=== PATIENT | female | born 1940 | race Caucasian/White ===

== ENCOUNTER 2017-05-10 13:57 | Inpatient (IN) | payer OTHER ==
[2017-05-10] MEDS: HYDROCODONE/APAP (5/325) TAB PO ×2 (03:00→23:36)
[2017-05-10 17:03] LABS: ADD MAN DIFF? NO
[2017-05-10] MEDS: VANCOMYCIN 1 GM (PMX) 250 ML IVPB (17:12)
[2017-05-10 17:13] LABS: BASOPHILS % 0.1 % (0.0-2.0); EOSINOPHILS % 0.2 % (0.0-7.0); HEMATOCRIT 25.1 % (37.0-47.0); HEMOGLOBIN 8.2 g/dl (12.0-16.0); LYMPHOCYTES # 2.1 10^3/ul (0.8-2.9); LYMPHOCYTES % 9.4 % (15.0-51.0); MEAN CORPUSCULAR HEMOGLOBIN 26.5 pg (29.0-33.0); MEAN CORPUSCULAR HGB CONC 32.7 g/dl (32.0-37.0); MEAN CORPUSCULAR VOLUME 81.2 fl (82.0-101.0); MEAN PLATELET VOLUME 8.7 fl (7.4-10.4); MONOCYTE # 1.1 10^3/ul (0.3-0.9); MONOCYTES % 4.9 % (0.0-11.0); NEUTROPHIL # 18.5 10^3/ul (1.6-7.5); NEUTROPHILS % 84.2 % (39.0-77.0); RED BLOOD COUNT 3.09 10^6/ul (4.20-5.40); RED CELL DISTRIBUTION WIDTH 16.2 % (11.5-14.5)
[2017-05-10] MEDS: SODIUM CHLORIDE 0.9% 1L BAG IV* (17:13)
[2017-05-10 17:17] LABS: PLATELET COUNT 736 10^3/UL (140-415)
[2017-05-10 17:22] LABS: INR 1.04; PROTIME 13.7 Sec (11.9-14.9); PT RATIO 1.1
[2017-05-10 17:23] LABS: PARTIAL THROMBOPLASTIN TIME 40.9 Sec (25.0-35.0)
[2017-05-10 17:24] LABS: LACTIC ACID 1.6 mmol/L (0.5-2.0)
[2017-05-10 17:41] LABS: TROPONIN-I < 0.012 ng/ml (0.00-0.12)
[2017-05-10] MEDS: morphine 4 MG/ML VIAL IV (20:02)
[2017-05-10] MEDS ORDERED: ONDANSETRON 4 MG INJ IV (20:30)
[2017-05-10] MEDS: PIPER-TAZO 3.375 GM IV (PMX) 50 ML IV (21:01)
[2017-05-10] MEDS: SOD CHLORIDE 0.9% 1,000 ML IV (21:26)
[2017-05-10] MEDS ORDERED: MAGNESIUM HYDROXIDE 30ML CUP PO (21:30)
[2017-05-10] MEDS ORDERED: BISACODYL (EC) 5 MG TAB PO (21:30)
[2017-05-10] MEDS ORDERED: ACETAMINOPHEN 325 MG TAB PO (21:30)
[2017-05-10] MEDS ORDERED: DOCUSATE SODIUM 100 MG CAP PO (21:30)
[2017-05-10] MEDS ORDERED: NACL 0.9% 3 ML SYG IV (21:30)
[2017-05-10] MEDS ORDERED: ACETAMINOPHEN 500 MG TAB PO (21:30)
[2017-05-10] MEDS ORDERED: DEXTROSE 50% 50 ML SYRINGE IV (22:30)
[2017-05-10] MEDS ORDERED: GLUCOSE GEL 15 GRAM TUBE PO ×2 (22:30)
[2017-05-10] MEDS ORDERED: GLUCAGON 1 MG INJ IM (22:30)
[2017-05-10] MEDS: MAGNESIUM HYDROXIDE 30ML CUP PO (23:38)
[2017-05-10] MEDS: ACETAMINOPHEN 325 MG TAB PO (23:47)
[2017-05-11] MEDS ORDERED: PIPER-TAZO 3.375 GM IV (PMX) 50 ML IV
[2017-05-11] MEDS: PIPER-TAZO 3.375 GM IV (PMX) 50 ML IV ×5 (02:42→23:40)
[2017-05-11] MEDS: ACETAMINOPHEN 325 MG TAB PO (04:32)
[2017-05-11] MEDS: PANTOPRAZOLE 40 MG INJ IV (05:19)
[2017-05-11 06:59] LABS: ANION GAP 15 (8-16); BLOOD UREA NITROGEN 12 mg/dl (7-20); CALCIUM 7.1 mg/dl (8.4-10.2); CARBON DIOXIDE 29 mmol/L (21-31); CHLORIDE 95 mmol/L (97-110); CREATININE 0.51 mg/dl (0.44-1.00); GLUCOSE 143 mg/dl (70-220); POTASSIUM 3.5 mmol/L (3.5-5.1); SODIUM 135 mmol/L (135-144)
[2017-05-11] MEDS: BISACODYL 10 MG SUPP PR (09:00)
[2017-05-11] MEDS: MAGNESIUM HYDROXIDE 30ML CUP PO ×2 (10:07→16:20)
[2017-05-11] MEDS: ASPIRIN 81 MG TAB PO (10:30)
[2017-05-11] MEDS: ENOXAPARIN 40 MG/0.4 ML SYG SC (10:30)
[2017-05-11] MEDS: HYDROCODONE/APAP (5/325) TAB PO ×3 (10:54→21:40)
[2017-05-11] MEDS: LINAGLIPTIN 5 MG TABLET PO (13:43)
[2017-05-11] MEDS: LOSARTAN 50 MG TAB PO (13:43)
[2017-05-11] MEDS: ZINC SULFATE 220 MG CAP PO (13:45)
[2017-05-11] MEDS: ASCORBIC ACID 500 MG TAB PO (13:45)
[2017-05-11] MEDS ORDERED: VANCOMYCIN IV PER PHARMACY XX (14:00)
[2017-05-11] MEDS: VANCOMYCIN 1 GM 250 ML IVPB (16:54)
[2017-05-11] MEDS: SOD CHLORIDE 0.9% 1,000 ML IV ×2 (19:04→21:37)
[2017-05-11] MEDS ORDERED: DOCUSATE SODIUM 10 MG/ML (10ML CUP) (20:35)
[2017-05-11] MEDS ORDERED: DOCUSATE SODIUM 100 MG CAP PO (21:00)
[2017-05-11] MEDS: DOCUSATE SODIUM 10 MG/ML (10ML CUP) PO (21:38)
[2017-05-11] MEDS: ATORVASTATIN 20 MG TAB PO (21:38)
[2017-05-11] MEDS: INSULIN ASPART [NOVOLOG] 3 ML PEN SC (21:43)
[2017-05-12] MEDS: ACETAMINOPHEN 500 MG TAB PO (00:11)
[2017-05-12] MEDS: ACCU-CHEK XX (02:00)
[2017-05-12] MEDS: HYDROCODONE/APAP (5/325) TAB PO ×5 (03:30→20:38)
[2017-05-12] MEDS: hydrALAzine 20 MG INJ IV (03:42)
[2017-05-12] MEDS: VANCOMYCIN 1 GM 250 ML IVPB ×2 (03:46→17:24)
[2017-05-12 05:42] LABS: ADD MAN DIFF? NO
[2017-05-12 05:50] LABS: BASOPHILS % 0.1 % (0.0-2.0); EOSINOPHILS % 0.2 % (0.0-7.0); HEMOGLOBIN 7.4 g/dl (12.0-16.0); LYMPHOCYTES # 2.1 10^3/ul (0.8-2.9); LYMPHOCYTES % 9.9 % (15.0-51.0); MEAN CORPUSCULAR HEMOGLOBIN 25.6 pg (29.0-33.0); MEAN CORPUSCULAR HGB CONC 30.8 g/dl (32.0-37.0); MEAN PLATELET VOLUME 8.5 fl (7.4-10.4); MONOCYTE # 0.8 10^3/ul (0.3-0.9); NEUTROPHILS % 84.9 % (39.0-77.0); RED BLOOD COUNT 2.89 10^6/ul (4.20-5.40); RED CELL DISTRIBUTION WIDTH 16.2 % (11.5-14.5)
[2017-05-12 05:50] LABS: WHITE BLOOD COUNT 21.2 10^3/ul (4.8-10.8)
[2017-05-12] MEDS: PANTOPRAZOLE 40 MG INJ IV (05:50)
[2017-05-12] MEDS: PIPER-TAZO 3.375 GM IV (PMX) 50 ML IV ×3 (05:54→17:24)
[2017-05-12 06:14] LABS: PHOSPHORUS 2.9 mg/dl (2.5-4.9)
[2017-05-12 06:14] LABS: ANION GAP 17 (8-16); BLOOD UREA NITROGEN 9 mg/dl (7-20); CALCIUM 7.3 mg/dl (8.4-10.2); CARBON DIOXIDE 27 mmol/L (21-31); CHLORIDE 95 mmol/L (97-110); CREATININE 0.45 mg/dl (0.44-1.00); GLUCOSE 114 mg/dl (70-220); POTASSIUM 3.7 mmol/L (3.5-5.1); SODIUM 135 mmol/L (135-144)
[2017-05-12 06:19] LABS: MAGNESIUM 0.8 mg/dl (1.7-2.5)
[2017-05-12 06:25] LABS: PLATELET COUNT 728 10^3/UL (140-415)
[2017-05-12 07:23] LABS: ADD UMIC NO; UR ASCORBIC ACID NEGATIVE (NEGATIVE); UR BILIRUBIN (Dip) NEGATIVE (NEGATIVE); UR BLOOD (Dip) NEGATIVE (NEGATIVE); UR CLARITY CLEAR (CLEAR); UR COLOR YELLOW (YELLOW); UR GLUCOSE (Dip) 1+ mg/dL (NEGATIVE); UR KETONES (Dip) TRACE mg/dL (NEGATIVE); UR LEUKOCYTE ESTERASE (Dip) NEGATIVE Leu/ul (NEGATIVE); UR NITRITE (Dip) NEGATIVE (NEGATIVE); UR RBC 1 /HPF (0-5); UR SPECIFIC GRAVITY (Dip) 1.012 (1.003-1.030); UR TOTAL PROTEIN (Dip) NEGATIVE (NEGATIVE); UR UROBILINOGEN (Dip) NEGATIVE (NEGATIVE); UR WBC 1 /HPF (0-5)
[2017-05-12 07:24] LABS: HEMOGLOBIN A1C 7.4 % (0-5.9)
[2017-05-12] MEDS: MAGNESIUM SULFATE 4 GM/100 ML 100 ML IVPB (07:53)
[2017-05-12] MEDS: ENOXAPARIN 40 MG/0.4 ML SYG SC (07:55)
[2017-05-12] MEDS: INSULIN ASPART [NOVOLOG] 3 ML PEN SC ×4 (07:56→20:44)
[2017-05-12] MEDS: BISACODYL 10 MG SUPP PR (08:06)
[2017-05-12] MEDS: MAGNESIUM HYDROXIDE 30ML CUP PO (08:06)
[2017-05-12] MEDS: ASCORBIC ACID 500 MG TAB PO (08:06)
[2017-05-12] MEDS: LINAGLIPTIN 5 MG TABLET PO (08:06)
[2017-05-12] MEDS: ZINC SULFATE 220 MG CAP PO (08:06)
[2017-05-12] MEDS: LOSARTAN 50 MG TAB PO (08:07)
[2017-05-12] MEDS: ASPIRIN 81 MG TAB PO (08:07)
[2017-05-12 08:25] LABS: IMMEDIATE SPIN CROSSMATCH 1 1
[2017-05-12] MEDS: DOCUSATE SODIUM 10 MG/ML (10ML CUP) PO (20:36)
[2017-05-12] MEDS: ATORVASTATIN 20 MG TAB PO (20:39)
[2017-05-13] MEDS: PIPER-TAZO 3.375 GM IV (PMX) 50 ML IV ×4 (00:22→17:53)
[2017-05-13] MEDS: SOD CHLORIDE 0.9% 1,000 ML IV ×2 (00:23→20:50)
[2017-05-13] MEDS: ACCU-CHEK XX (01:44)
[2017-05-13] MEDS: HYDROCODONE/APAP (5/325) TAB PO ×4 (03:30→20:48)
[2017-05-13 03:59] LABS: ADD MAN DIFF? NO
[2017-05-13 04:11] LABS: BASOPHILS % 0.2 % (0.0-2.0); EOSINOPHILS # 0.1 10^3/ul (0.0-0.5); EOSINOPHILS % 0.3 % (0.0-7.0); HEMATOCRIT 23.4 % (37.0-47.0); HEMOGLOBIN 7.4 g/dl (12.0-16.0); LYMPHOCYTES # 1.5 10^3/ul (0.8-2.9); LYMPHOCYTES % 7.7 % (15.0-51.0); MEAN CORPUSCULAR HEMOGLOBIN 25.9 pg (29.0-33.0); MEAN CORPUSCULAR HGB CONC 31.6 g/dl (32.0-37.0); MEAN CORPUSCULAR VOLUME 81.8 fl (82.0-101.0); MEAN PLATELET VOLUME 8.3 fl (7.4-10.4); MONOCYTE # 0.7 10^3/ul (0.3-0.9); MONOCYTES % 3.5 % (0.0-11.0); NEUTROPHIL # 16.7 10^3/ul (1.6-7.5); NEUTROPHILS % 87.6 % (39.0-77.0); PLATELET COUNT 663 10^3/UL (140-415); RED BLOOD COUNT 2.86 10^6/ul (4.20-5.40); RED CELL DISTRIBUTION WIDTH 16.2 % (11.5-14.5)
[2017-05-13 04:41] LABS: VANCOMYCIN,TROUGH 13.8 ug/ml (10.0-20.0)
[2017-05-13 04:41] LABS: ANION GAP 12 (8-16); BLOOD UREA NITROGEN 5 mg/dl (7-20); CALCIUM 7.1 mg/dl (8.4-10.2); CARBON DIOXIDE 27 mmol/L (21-31); CHLORIDE 96 mmol/L (97-110); CREATININE 0.44 mg/dl (0.44-1.00); GLUCOSE 151 mg/dl (70-220); SODIUM 132 mmol/L (135-144)
[2017-05-13] MEDS: VANCOMYCIN 1 GM 250 ML IVPB ×2 (05:29→15:30)
[2017-05-13] MEDS: PANTOPRAZOLE 40 MG INJ IV (05:30)
[2017-05-13] MEDS: INSULIN ASPART [NOVOLOG] 3 ML PEN SC ×4 (08:26→20:46)
[2017-05-13] MEDS: ENOXAPARIN 40 MG/0.4 ML SYG SC (08:27)
[2017-05-13] MEDS: LINAGLIPTIN 5 MG TABLET PO (08:29)
[2017-05-13] MEDS: ZINC SULFATE 220 MG CAP PO (08:29)
[2017-05-13] MEDS: LOSARTAN 50 MG TAB PO ×2 (08:29→20:49)
[2017-05-13] MEDS: MAGNESIUM HYDROXIDE 30ML CUP PO (08:29)
[2017-05-13] MEDS: ASPIRIN 81 MG TAB PO (08:29)
[2017-05-13] MEDS: ASCORBIC ACID 500 MG TAB PO (08:29)
[2017-05-13] MEDS: BISACODYL 10 MG SUPP PR (08:30)
[2017-05-13] MEDS: POTASSIUM CHLORIDE 20 MEQ POWDER FOR ORAL SOLN PO (11:56)
[2017-05-13] MEDS: metFORMIN 500 MG TAB GTB (17:53)
[2017-05-13 18:47] LABS: TROPONIN-I < 0.012 ng/ml (0.00-0.12)
[2017-05-13] MEDS: DOCUSATE SODIUM 10 MG/ML (10ML CUP) PO (20:47)
[2017-05-13] MEDS: ATORVASTATIN 20 MG TAB PO (20:47)
[2017-05-14] MEDS: PIPER-TAZO 3.375 GM IV (PMX) 50 ML IV ×4 (00:34→17:24)
[2017-05-14] MEDS: ACCU-CHEK XX (00:35)
[2017-05-14 01:44] LABS: TROPONIN-I < 0.012 ng/ml (0.00-0.12)
[2017-05-14] MEDS: hydrALAzine 20 MG INJ IV ×2 (02:18→10:56)
[2017-05-14] MEDS: HYDROCODONE/APAP (5/325) TAB PO ×6 (03:30→21:20)
[2017-05-14] MEDS: VANCOMYCIN 1 GM 250 ML IVPB ×2 (03:38→15:12)
[2017-05-14] MEDS: PANTOPRAZOLE 40 MG INJ IV (05:39)
[2017-05-14 07:37] LABS: CHOL/HDL RATIO 3.4 RATIO; HDL CHOLESTEROL 20 mg/dl (33-92); LDL CHOLESTEROL,CALCULATED 29 mg/dl; TRIGLYCERIDES 100 mg/dl (0-149)
[2017-05-14 07:37] LABS: CHOLESTEROL 69 mg/dl (100-200)
[2017-05-14] MEDS: LOSARTAN 50 MG TAB PO ×2 (08:29→21:21)
[2017-05-14] MEDS: LINAGLIPTIN 5 MG TABLET PO (08:29)
[2017-05-14] MEDS: ASPIRIN 81 MG TAB PO (08:29)
[2017-05-14] MEDS: ASCORBIC ACID 500 MG TAB PO (08:29)
[2017-05-14] MEDS: metFORMIN 500 MG TAB GTB ×2 (08:29→17:25)
[2017-05-14] MEDS: BISACODYL 10 MG SUPP PR (08:30)
[2017-05-14] MEDS: ZINC SULFATE 220 MG CAP PO (08:30)
[2017-05-14] MEDS: INSULIN ASPART [NOVOLOG] 3 ML PEN SC ×5 (08:31→21:00)
[2017-05-14] MEDS: MAGNESIUM HYDROXIDE 30ML CUP PO (08:32)
[2017-05-14] MEDS: ENOXAPARIN 40 MG/0.4 ML SYG SC (08:32)
[2017-05-14] MEDS: SOD CHLORIDE 0.9% 1,000 ML IV ×2 (08:37→23:06)
[2017-05-14] MEDS: FOSFOMYCIN 3 GM PACKET PO (13:49)
[2017-05-14] MEDS: DOCUSATE SODIUM 10 MG/ML (10ML CUP) PO (21:20)
[2017-05-14] MEDS: ATORVASTATIN 20 MG TAB PO (21:21)
[2017-05-15] MEDS: PIPER-TAZO 3.375 GM IV (PMX) 50 ML IV ×4 (00:13→17:20)
[2017-05-15] MEDS: ACCU-CHEK XX (02:00)
[2017-05-15] MEDS: hydrALAzine 20 MG INJ IV (03:23)
[2017-05-15] MEDS: VANCOMYCIN 1 GM 250 ML IVPB (03:30)
[2017-05-15] MEDS: HYDROCODONE/APAP (5/325) TAB PO ×4 (03:30→21:20)
[2017-05-15] MEDS: PANTOPRAZOLE 40 MG INJ IV (05:58)
[2017-05-15 06:56] LABS: BLOOD UREA NITROGEN 6 mg/dl (7-20)
[2017-05-15 08:00] LABS: ADD MAN DIFF? NO
[2017-05-15] MEDS: INSULIN ASPART [NOVOLOG] 3 ML PEN SC ×4 (08:00→21:18)
[2017-05-15 08:07] LABS: WHITE BLOOD COUNT 15.4 10^3/ul (4.8-10.8)
[2017-05-15 08:07] LABS: BASOPHILS % 0.3 % (0.0-2.0); EOSINOPHILS # 0.1 10^3/ul (0.0-0.5); EOSINOPHILS % 0.4 % (0.0-7.0); HEMATOCRIT 25.4 % (37.0-47.0); HEMOGLOBIN 7.7 g/dl (12.0-16.0); LYMPHOCYTES # 1.3 10^3/ul (0.8-2.9); LYMPHOCYTES % 8.1 % (15.0-51.0); MEAN CORPUSCULAR HEMOGLOBIN 25.4 pg (29.0-33.0); MEAN CORPUSCULAR HGB CONC 30.3 g/dl (32.0-37.0); MEAN CORPUSCULAR VOLUME 83.8 fl (82.0-101.0); MEAN PLATELET VOLUME 8.1 fl (7.4-10.4); MONOCYTE # 0.7 10^3/ul (0.3-0.9); MONOCYTES % 4.4 % (0.0-11.0); NEUTROPHIL # 13.2 10^3/ul (1.6-7.5); NEUTROPHILS % 85.9 % (39.0-77.0); RED BLOOD COUNT 3.03 10^6/ul (4.20-5.40); RED CELL DISTRIBUTION WIDTH 16.3 % (11.5-14.5)
[2017-05-15 08:31] LABS: ANION GAP 12 (8-16); BLOOD UREA NITROGEN 6 mg/dl (7-20); CALCIUM 7.6 mg/dl (8.4-10.2); CARBON DIOXIDE 25 mmol/L (21-31); CHLORIDE 100 mmol/L (97-110); CREATININE 0.57 mg/dl (0.44-1.00); GLUCOSE 124 mg/dl (70-220); POTASSIUM 3.1 mmol/L (3.5-5.1); SODIUM 134 mmol/L (135-144)
[2017-05-15] MEDS: ASPIRIN 81 MG TAB PO (08:40)
[2017-05-15] MEDS: ASCORBIC ACID 500 MG TAB PO (08:40)
[2017-05-15] MEDS: MAGNESIUM HYDROXIDE 30ML CUP PO (08:40)
[2017-05-15] MEDS: ZINC SULFATE 220 MG CAP PO (08:40)
[2017-05-15] MEDS: BISACODYL 10 MG SUPP PR (08:40)
[2017-05-15] MEDS: LINAGLIPTIN 5 MG TABLET PO (08:40)
[2017-05-15 08:41] LABS: PLATELET COUNT 725 10^3/UL (140-415)
[2017-05-15] MEDS: LOSARTAN 50 MG TAB PO ×2 (08:41→21:17)
[2017-05-15] MEDS: ENOXAPARIN 40 MG/0.4 ML SYG SC (08:49)
[2017-05-15] MEDS: POTASSIUM CHLORIDE 50 ML IVPB ×3 (13:09→15:27)
[2017-05-15 16:04] LABS: VANCOMYCIN,TROUGH 18.8 ug/ml (10.0-20.0)
[2017-05-15] MEDS: SOD CHLORIDE 0.9% 1,000 ML IV (17:32)
[2017-05-15] MEDS: VANCOMYCIN 750 MG in DEXTROSE 5% 150 ML IVPB (18:11)
[2017-05-15] MEDS: ATORVASTATIN 20 MG TAB PO (21:17)
[2017-05-15] MEDS: DOCUSATE SODIUM 10 MG/ML (10ML CUP) PO (21:17)
[2017-05-16] MEDS: PIPER-TAZO 3.375 GM IV (PMX) 50 ML IV ×4 (00:18→17:36)
[2017-05-16] MEDS: ACCU-CHEK XX (02:00)
[2017-05-16] MEDS: HYDROCODONE/APAP (5/325) TAB PO ×4 (04:32→21:50)
[2017-05-16] MEDS: SOD CHLORIDE 0.9% 1,000 ML IV (04:33)
[2017-05-16] MEDS: PANTOPRAZOLE 40 MG INJ IV (05:42)
[2017-05-16] MEDS: VANCOMYCIN 750 MG in DEXTROSE 5% 150 ML IVPB ×2 (06:17→21:53)
[2017-05-16 06:50] LABS: ADD MAN DIFF? NO
[2017-05-16 06:56] LABS: WHITE BLOOD COUNT 13.2 10^3/ul (4.8-10.8)
[2017-05-16 06:56] LABS: BASOPHILS % 0.2 % (0.0-2.0); EOSINOPHILS # 0.1 10^3/ul (0.0-0.5); EOSINOPHILS % 0.7 % (0.0-7.0); HEMATOCRIT 23.6 % (37.0-47.0); HEMOGLOBIN 7.3 g/dl (12.0-16.0); LYMPHOCYTES # 1.2 10^3/ul (0.8-2.9); LYMPHOCYTES % 9.1 % (15.0-51.0); MEAN CORPUSCULAR HEMOGLOBIN 26.1 pg (29.0-33.0); MEAN CORPUSCULAR HGB CONC 30.9 g/dl (32.0-37.0); MEAN CORPUSCULAR VOLUME 84.3 fl (82.0-101.0); MEAN PLATELET VOLUME 8.2 fl (7.4-10.4); MONOCYTE # 0.7 10^3/ul (0.3-0.9); MONOCYTES % 5.3 % (0.0-11.0); NEUTROPHIL # 11.1 10^3/ul (1.6-7.5); NEUTROPHILS % 83.8 % (39.0-77.0); PLATELET COUNT 681 10^3/UL (140-415); RED CELL DISTRIBUTION WIDTH 16.4 % (11.5-14.5)
[2017-05-16 07:21] LABS: ANION GAP 9 (8-16); BLOOD UREA NITROGEN 7 mg/dl (7-20); CARBON DIOXIDE 27 mmol/L (21-31); CHLORIDE 99 mmol/L (97-110); CREATININE 0.62 mg/dl (0.44-1.00); GLUCOSE 128 mg/dl (70-220); POTASSIUM 3.4 mmol/L (3.5-5.1); SODIUM 132 mmol/L (135-144)
[2017-05-16] MEDS: ENOXAPARIN 40 MG/0.4 ML SYG SC (07:55)
[2017-05-16] MEDS: INSULIN ASPART [NOVOLOG] 3 ML PEN SC ×4 (07:56→21:00)
[2017-05-16] MEDS: MAGNESIUM HYDROXIDE 30ML CUP PO (08:00)
[2017-05-16] MEDS: BISACODYL 10 MG SUPP PR (08:00)
[2017-05-16] MEDS: LINAGLIPTIN 5 MG TABLET PO (08:00)
[2017-05-16] MEDS: ASCORBIC ACID 500 MG TAB PO (08:00)
[2017-05-16] MEDS: LOSARTAN 50 MG TAB PO ×2 (08:00→21:48)
[2017-05-16] MEDS: ASPIRIN 81 MG TAB PO (08:01)
[2017-05-16] MEDS: ZINC SULFATE 220 MG CAP PO (08:01)
[2017-05-16] MEDS: POTASSIUM CHLORIDE 20 MEQ POWDER FOR ORAL SOLN PO (10:32)
[2017-05-16 13:42] LABS: IMMEDIATE SPIN CROSSMATCH 1 5
[2017-05-16] MEDS ORDERED: LORAZEPAM 2 MG INJ IV (16:00)
[2017-05-16] MEDS: HYDROmorphONE 0.5 MG/0.5 ML SYG IV (17:36)
[2017-05-16] MEDS: DOCUSATE SODIUM 10 MG/ML (10ML CUP) PO (21:50)
[2017-05-16] MEDS: ATORVASTATIN 20 MG TAB PO (21:50)
[2017-05-16] MEDS: hydrALAzine 20 MG INJ IV (21:51)
[2017-05-17] MEDS: PIPER-TAZO 3.375 GM IV (PMX) 50 ML IV ×4 (00:42→17:25)
[2017-05-17] MEDS: ACCU-CHEK XX (02:00)
[2017-05-17] MEDS: SOD CHLORIDE 0.9% 1,000 ML IV ×2 (03:26→20:06)
[2017-05-17] MEDS: PANTOPRAZOLE 40 MG INJ IV (05:20)
[2017-05-17] MEDS: VANCOMYCIN 750 MG in DEXTROSE 5% 150 ML IVPB ×2 (05:20→20:17)
[2017-05-17] MEDS: HYDROCODONE/APAP (5/325) TAB PO ×4 (05:20→21:48)
[2017-05-17 06:32] LABS: ADD MAN DIFF? NO
[2017-05-17 06:36] LABS: WHITE BLOOD COUNT 11.6 10^3/ul (4.8-10.8)
[2017-05-17 06:36] LABS: BASOPHILS % 0.2 % (0.0-2.0); EOSINOPHILS % 0.3 % (0.0-7.0); HEMOGLOBIN 8.5 g/dl (12.0-16.0); LYMPHOCYTES # 1.2 10^3/ul (0.8-2.9); LYMPHOCYTES % 10.6 % (15.0-51.0); MEAN CORPUSCULAR HEMOGLOBIN 26.3 pg (29.0-33.0); MEAN CORPUSCULAR HGB CONC 31.5 g/dl (32.0-37.0); MEAN CORPUSCULAR VOLUME 83.6 fl (82.0-101.0); MEAN PLATELET VOLUME 7.8 fl (7.4-10.4); MONOCYTE # 0.8 10^3/ul (0.3-0.9); MONOCYTES % 6.6 % (0.0-11.0); NEUTROPHIL # 9.5 10^3/ul (1.6-7.5); NEUTROPHILS % 81.8 % (39.0-77.0); PLATELET COUNT 632 10^3/UL (140-415); RED BLOOD COUNT 3.23 10^6/ul (4.20-5.40); RED CELL DISTRIBUTION WIDTH 16.2 % (11.5-14.5)
[2017-05-17 07:06] LABS: ALANINE AMINOTRANSFERASE 26 IU/L (13-69); ALBUMIN 2.4 g/dl (3.3-4.9); ALBUMIN/GLOBULIN RATIO 0.75; ALKALINE PHOSPHATASE 97 IU/L (42-121); ANION GAP 11 (8-16); ASPARTATE AMINO TRANSFERASE 11 IU/L (15-46); BILIRUBIN,INDIRECT 0.2 mg/dl (0-1.1); BILIRUBIN,TOTAL 0.2 mg/dl (0.2-1.3); BLOOD UREA NITROGEN 6 mg/dl (7-20); CARBON DIOXIDE 27 mmol/L (21-31); CHLORIDE 97 mmol/L (97-110); GLUCOSE 135 mg/dl (70-220); POTASSIUM 3.4 mmol/L (3.5-5.1); SODIUM 132 mmol/L (135-144); TOTAL PROTEIN 5.6 g/dl (6.1-8.1)
[2017-05-17] MEDS: MAGNESIUM HYDROXIDE 30ML CUP PO (08:37)
[2017-05-17] MEDS: INSULIN ASPART [NOVOLOG] 3 ML PEN SC ×4 (08:38→21:00)
[2017-05-17] MEDS: ENOXAPARIN 40 MG/0.4 ML SYG SC (08:38)
[2017-05-17] MEDS: LINAGLIPTIN 5 MG TABLET PO (08:39)
[2017-05-17] MEDS: LOSARTAN 50 MG TAB PO ×2 (08:39→21:48)
[2017-05-17] MEDS: ASCORBIC ACID 500 MG TAB PO (08:39)
[2017-05-17] MEDS: ASPIRIN 81 MG TAB PO (08:39)
[2017-05-17] MEDS: BISACODYL 10 MG SUPP PR (08:40)
[2017-05-17] MEDS: ZINC SULFATE 220 MG CAP PO (08:40)
[2017-05-17] MEDS: POTASSIUM CHLORIDE (SR) 20 MEQ TAB PO (15:13)
[2017-05-17 18:01] LABS: VANCOMYCIN,TROUGH 15.7 ug/ml (10.0-20.0)
[2017-05-17] MEDS: DOCUSATE SODIUM 10 MG/ML (10ML CUP) PO (21:47)
[2017-05-17] MEDS: ATORVASTATIN 20 MG TAB PO (21:47)
[2017-05-18] MEDS: PIPER-TAZO 3.375 GM IV (PMX) 50 ML IV ×4 (00:48→18:33)
[2017-05-18] MEDS: ACCU-CHEK XX (02:00)
[2017-05-18] MEDS: HYDROCODONE/APAP (5/325) TAB PO ×4 (03:30→21:30)
[2017-05-18] MEDS: SOD CHLORIDE 0.9% 1,000 ML IV (05:51)
[2017-05-18] MEDS: PANTOPRAZOLE 40 MG INJ IV (05:51)
[2017-05-18] MEDS: VANCOMYCIN 750 MG in DEXTROSE 5% 150 ML IVPB ×2 (05:52→20:32)
[2017-05-18 06:42] LABS: ADD MAN DIFF? NO
[2017-05-18 06:53] LABS: WHITE BLOOD COUNT 10.5 10^3/ul (4.8-10.8)
[2017-05-18 06:53] LABS: BASOPHILS % 0.3 % (0.0-2.0); EOSINOPHILS # 0.1 10^3/ul (0.0-0.5); EOSINOPHILS % 0.5 % (0.0-7.0); HEMATOCRIT 27.5 % (37.0-47.0); HEMOGLOBIN 8.6 g/dl (12.0-16.0); LYMPHOCYTES # 1.1 10^3/ul (0.8-2.9); LYMPHOCYTES % 10.4 % (15.0-51.0); MEAN CORPUSCULAR HEMOGLOBIN 26.5 pg (29.0-33.0); MEAN CORPUSCULAR HGB CONC 31.3 g/dl (32.0-37.0); MEAN CORPUSCULAR VOLUME 84.6 fl (82.0-101.0); MEAN PLATELET VOLUME 8.1 fl (7.4-10.4); MONOCYTE # 0.7 10^3/ul (0.3-0.9); MONOCYTES % 6.4 % (0.0-11.0); NEUTROPHIL # 8.6 10^3/ul (1.6-7.5); NEUTROPHILS % 81.9 % (39.0-77.0); RED BLOOD COUNT 3.25 10^6/ul (4.20-5.40); RED CELL DISTRIBUTION WIDTH 16.6 % (11.5-14.5)
[2017-05-18 07:24] LABS: PLATELET COUNT 670 10^3/UL (140-415)
[2017-05-18 07:26] LABS: ANION GAP 13 (8-16); BLOOD UREA NITROGEN 7 mg/dl (7-20); CALCIUM 8.2 mg/dl (8.4-10.2); CARBON DIOXIDE 28 mmol/L (21-31); CHLORIDE 96 mmol/L (97-110); CREATININE 0.63 mg/dl (0.44-1.00); GLUCOSE 133 mg/dl (70-220); POTASSIUM 3.8 mmol/L (3.5-5.1); SODIUM 133 mmol/L (135-144)
[2017-05-18 07:35] LABS: MAGNESIUM 1.3 mg/dl (1.7-2.5)
[2017-05-18 07:35] LABS: PHOSPHORUS 3.4 mg/dl (2.5-4.9)
[2017-05-18] MEDS: BISACODYL 10 MG SUPP PR (09:00)
[2017-05-18] MEDS: ZINC SULFATE 220 MG CAP PO (09:00)
[2017-05-18] MEDS: ASPIRIN 81 MG TAB PO (09:00)
[2017-05-18] MEDS: LINAGLIPTIN 5 MG TABLET PO (09:00)
[2017-05-18] MEDS: ASCORBIC ACID 500 MG TAB PO (09:00)
[2017-05-18] MEDS: MAGNESIUM HYDROXIDE 30ML CUP PO (09:00)
[2017-05-18] MEDS: ENOXAPARIN 40 MG/0.4 ML SYG SC (09:00)
[2017-05-18] MEDS: ACETAMINOPHEN 650 MG SUPP PR (09:15)
[2017-05-18] MEDS: LOSARTAN 50 MG TAB PO ×2 (09:16→20:33)
[2017-05-18] MEDS: INSULIN ASPART [NOVOLOG] 3 ML PEN SC ×4 (09:56→20:35)
[2017-05-18] MEDS ORDERED: FENTAnyl 50 MCG/ML VIAL ×2 (13:16→13:42)
[2017-05-18] MEDS ORDERED: PROPOFOL 20 ML (13:41)
[2017-05-18] MEDS ORDERED: MIDAZOLAM 1 MG/ML 2 ML INJ (13:42)
[2017-05-18] MEDS: BACITRACIN 50000 UNITS INJ (14:46)
[2017-05-18] MEDS: POLYMYXIN/BACITRACIN 1L IRRIG (14:48)
[2017-05-18] MEDS ORDERED: ONDANSETRON 4 MG INJ IV (15:00)
[2017-05-18] MEDS: MAGNESIUM SULFATE 2 GM/50 ML 50 ML IVPB ×2 (15:16→20:27)
[2017-05-18] MEDS: HYDROmorphONE 0.5 MG/0.5 ML SYG IV (18:33)
[2017-05-18 20:06] LABS: ADD UMIC YES; UR ASCORBIC ACID NEGATIVE (NEGATIVE); UR BILIRUBIN (Dip) NEGATIVE (NEGATIVE); UR BLOOD (Dip) 2+ mg/dL (NEGATIVE); UR BUDDING YEAST MANY /HPF (NONE SEEN); UR CLARITY TURBID (CLEAR); UR COLOR YELLOW (YELLOW); UR GLUCOSE (Dip) NEGATIVE (NEGATIVE); UR KETONES (Dip) NEGATIVE (NEGATIVE); UR LEUKOCYTE ESTERASE (Dip) 3+ Leu/ul (NEGATIVE); UR NITRITE (Dip) NEGATIVE (NEGATIVE); UR RBC > 182 /HPF (0-5); UR SPECIFIC GRAVITY (Dip) 1.006 (1.003-1.030); UR SQUAMOUS EPITHELIAL CELL MANY /HPF (FEW); UR TOTAL PROTEIN (Dip) 1+ mg/dl (NEGATIVE); UR UROBILINOGEN (Dip) NEGATIVE (NEGATIVE); UR WBC > 182 /HPF (0-5)
[2017-05-18] MEDS: ATORVASTATIN 20 MG TAB PO (20:33)
[2017-05-18] MEDS: DOCUSATE SODIUM 10 MG/ML (10ML CUP) PO (20:33)
[2017-05-19] MEDS: PIPER-TAZO 3.375 GM IV (PMX) 50 ML IV ×4 (00:30→17:20)
[2017-05-19] MEDS: SOD CHLORIDE 0.9% 1,000 ML IV (00:36)
[2017-05-19] MEDS: ACCU-CHEK XX (02:00)
[2017-05-19] MEDS: HYDROCODONE/APAP (5/325) TAB PO ×4 (03:30→22:45)
[2017-05-19] MEDS: hydrALAzine 20 MG INJ IV ×2 (04:26→16:01)
[2017-05-19] MEDS: PANTOPRAZOLE 40 MG INJ IV (05:27)
[2017-05-19] MEDS: VANCOMYCIN 750 MG in DEXTROSE 5% 150 ML IVPB ×2 (05:28→18:15)
[2017-05-19 06:38] LABS: ADD MAN DIFF? NO
[2017-05-19 06:46] LABS: BASOPHILS % 0.2 % (0.0-2.0); HEMATOCRIT 24.2 % (37.0-47.0); HEMOGLOBIN 7.8 g/dl (12.0-16.0); LYMPHOCYTES # 1.1 10^3/ul (0.8-2.9); LYMPHOCYTES % 11.3 % (15.0-51.0); MEAN CORPUSCULAR HEMOGLOBIN 26.6 pg (29.0-33.0); MEAN CORPUSCULAR HGB CONC 32.2 g/dl (32.0-37.0); MEAN CORPUSCULAR VOLUME 82.6 fl (82.0-101.0); MEAN PLATELET VOLUME 8.2 fl (7.4-10.4); MONOCYTE # 0.4 10^3/ul (0.3-0.9); MONOCYTES % 4.2 % (0.0-11.0); NEUTROPHIL # 8.2 10^3/ul (1.6-7.5); PLATELET COUNT 572 10^3/UL (140-415); RED BLOOD COUNT 2.93 10^6/ul (4.20-5.40); RED CELL DISTRIBUTION WIDTH 16.9 % (11.5-14.5)
[2017-05-19 06:46] LABS: WHITE BLOOD COUNT 9.7 10^3/ul (4.8-10.8)
[2017-05-19 07:24] LABS: ALANINE AMINOTRANSFERASE 27 IU/L (13-69); ALBUMIN 2.4 g/dl (3.3-4.9); ALBUMIN/GLOBULIN RATIO 0.68; ALKALINE PHOSPHATASE 89 IU/L (42-121); ANION GAP 11 (8-16); ASPARTATE AMINO TRANSFERASE 20 IU/L (15-46); BLOOD UREA NITROGEN 6 mg/dl (7-20); CARBON DIOXIDE 29 mmol/L (21-31); CHLORIDE 95 mmol/L (97-110); GLUCOSE 168 mg/dl (70-220); MAGNESIUM 2.3 mg/dl (1.7-2.5); SODIUM 132 mmol/L (135-144); TOTAL PROTEIN 5.9 g/dl (6.1-8.1)
[2017-05-19 07:29] LABS: POTASSIUM 2.8 mmol/L (3.5-5.1)
[2017-05-19] MEDS: ENOXAPARIN 40 MG/0.4 ML SYG SC (08:23)
[2017-05-19] MEDS: ACETAMINOPHEN 650 MG SUPP PR (08:23)
[2017-05-19] MEDS: ZINC SULFATE 220 MG CAP PO (08:24)
[2017-05-19] MEDS: ASPIRIN 81 MG TAB PO (08:24)
[2017-05-19] MEDS: LINAGLIPTIN 5 MG TABLET PO (08:25)
[2017-05-19] MEDS: ASCORBIC ACID 500 MG TAB PO (08:25)
[2017-05-19] MEDS: LOSARTAN 50 MG TAB PO ×2 (08:25→20:59)
[2017-05-19] MEDS: MAGNESIUM HYDROXIDE 30ML CUP PO (08:26)
[2017-05-19] MEDS: BISACODYL 10 MG SUPP PR (08:26)
[2017-05-19] MEDS: INSULIN ASPART [NOVOLOG] 3 ML PEN SC ×4 (08:27→21:04)
[2017-05-19] MEDS ORDERED: POTASSIUM CHLORIDE 40 MEQ in SOD CHLORIDE 0.9% 150 ML IVPB ×2 (09:00→12:00)
[2017-05-19] MEDS: POTASSIUM CHLORIDE 50 ML IVPB ×10 (12:04→20:54)
[2017-05-19] MEDS: ACETAMINOPHEN 325 MG TAB PO (17:30)
[2017-05-19] MEDS: DOCUSATE SODIUM 10 MG/ML (10ML CUP) PO (20:58)
[2017-05-19] MEDS: ATORVASTATIN 20 MG TAB PO (20:59)
[2017-05-19] MEDS: INSULIN DETEMIR [LEVEMIR] 3ML CART SC (21:04)
[2017-05-20] MEDS: PIPER-TAZO 3.375 GM IV (PMX) 50 ML IV ×3 (00:44→12:41)
[2017-05-20] MEDS: ACCU-CHEK XX ×2 (02:00→23:47)
[2017-05-20] MEDS: HYDROCODONE/APAP (5/325) TAB PO ×5 (03:38→20:53)
[2017-05-20] MEDS: PANTOPRAZOLE 40 MG INJ IV (05:34)
[2017-05-20] MEDS: VANCOMYCIN 750 MG in DEXTROSE 5% 150 ML IVPB ×2 (05:34→17:57)
[2017-05-20 06:20] LABS: ABNORMAL IP MESSAGE 1; HEMATOCRIT 22.1 % (37.0-47.0); MEAN CORPUSCULAR HEMOGLOBIN 25.8 pg (29.0-33.0); MEAN CORPUSCULAR HGB CONC 31.2 g/dl (32.0-37.0); MEAN CORPUSCULAR VOLUME 82.8 fl (82.0-101.0); MEAN PLATELET VOLUME 8.3 fl (7.4-10.4); PLATELET COUNT 492 10^3/UL (140-415); RED BLOOD COUNT 2.67 10^6/ul (4.20-5.40); RED CELL DISTRIBUTION WIDTH 16.8 % (11.5-14.5)
[2017-05-20 06:39] LABS: ANION GAP 10 (8-16); BLOOD UREA NITROGEN 11 mg/dl (7-20); CALCIUM 7.4 mg/dl (8.4-10.2); CARBON DIOXIDE 29 mmol/L (21-31); CHLORIDE 98 mmol/L (97-110); CREATININE 0.57 mg/dl (0.44-1.00); GLUCOSE 128 mg/dl (70-220); POTASSIUM 3.5 mmol/L (3.5-5.1); SODIUM 133 mmol/L (135-144)
[2017-05-20 06:40] LABS: ADD MAN DIFF? YES; HEMOGLOBIN 6.9 g/dl (12.0-16.0); POSITIVE DIFF @See below
[2017-05-20 07:12] LABS: ADD UMIC YES; UR ASCORBIC ACID NEGATIVE (NEGATIVE); UR BACTERIA FEW /HPF (NONE SEEN); UR BILIRUBIN (Dip) NEGATIVE (NEGATIVE); UR BLOOD (Dip) NEGATIVE (NEGATIVE); UR BUDDING YEAST FEW /HPF (NONE SEEN); UR CLARITY CLEAR (CLEAR); UR COLOR STRAW (YELLOW); UR GLUCOSE (Dip) NEGATIVE (NEGATIVE); UR KETONES (Dip) NEGATIVE (NEGATIVE); UR LEUKOCYTE ESTERASE (Dip) TRACE Leu/ul (NEGATIVE); UR NITRITE (Dip) NEGATIVE (NEGATIVE); UR RBC 1 /HPF (0-5); UR TOTAL PROTEIN (Dip) NEGATIVE (NEGATIVE); UR UROBILINOGEN (Dip) NEGATIVE (NEGATIVE); UR WBC 5 /HPF (0-5)
[2017-05-20 08:05] LABS: ANISOCYTOSIS 1+ (0-0); BAND NEUTROPHILS #M 0.8 10^3/ul (0.0-0.6); BAND NEUTROPHILS % (M) 11 % (0-4); HYPOCHROMASIA 2+ (0-0); LYMPHOCYTES #M 1.6 10^3/ul (0.8-2.9); LYMPHOCYTES % (M) 20 % (15-51); METAMYELOCYTES %M 1 % (0-0); MICROCYTOSIS 1+ (0-0); MONOCYTE #M 0.2 10^3/ul (0.3-0.9); MONOCYTES % (M) 3 % (0-11); MYELOCYTES % (M) 1 % (0-0); PLATELET ESTIMATE INCREASED; POIKILOCYTOSIS 1+ (0-0); POLYCHROMASIA 3+ (0-0); SEG NEUT #M 5.2 10^3/ul (1.7-7.5); SEGMENTED NEUTROPHILS (M) % 64 % (39-77); SMUDGE%M 9 % (0-0)
[2017-05-20] MEDS: ENOXAPARIN 40 MG/0.4 ML SYG SC (08:30)
[2017-05-20] MEDS: INSULIN ASPART [NOVOLOG] 3 ML PEN SC ×4 (08:30→20:45)
[2017-05-20] MEDS: ASPIRIN 81 MG TAB PO (08:38)
[2017-05-20] MEDS: ZINC SULFATE 220 MG CAP PO (08:40)
[2017-05-20] MEDS: MAGNESIUM HYDROXIDE 30ML CUP PO ×2 (08:40→08:50)
[2017-05-20] MEDS: LOSARTAN 50 MG TAB PO ×2 (08:40→20:48)
[2017-05-20] MEDS: ASCORBIC ACID 500 MG TAB PO (08:40)
[2017-05-20] MEDS: LINAGLIPTIN 5 MG TABLET PO (08:40)
[2017-05-20] MEDS: BISACODYL 10 MG SUPP PR ×2 (08:40→08:50)
[2017-05-20] MEDS: AMLODIPINE 10 MG TAB PO (12:41)
[2017-05-20] MEDS: SOD FERRIC GLUC COMPLX 125 MG in SOD CHLORIDE 0.9% 100 ML IVPB (13:55)
[2017-05-20] MEDS: PIPER-TAZO 3.375 GM IV (PMX) 100 ML IVPB ×2 (17:05→23:48)
[2017-05-20] MEDS: ATORVASTATIN 20 MG TAB PO (20:46)
[2017-05-20] MEDS: DOCUSATE SODIUM 10 MG/ML (10ML CUP) PO (20:48)
[2017-05-20] MEDS: INSULIN DETEMIR [LEVEMIR] 3ML CART SC (20:52)
[2017-05-20] MEDS: ACETAMINOPHEN 325 MG TAB PO (21:56)
[2017-05-20 21:58] LABS: IMMEDIATE SPIN CROSSMATCH 1 1
[2017-05-21] MEDS: HYDROCODONE/APAP (5/325) TAB PO ×4 (03:30→21:06)
[2017-05-21 05:22] LABS: ADD MAN DIFF? NO
[2017-05-21 05:24] LABS: BASOPHILS % 0.3 % (0.0-2.0); EOSINOPHILS % 0.1 % (0.0-7.0); HEMATOCRIT 25.3 % (37.0-47.0); HEMOGLOBIN 8.2 g/dl (12.0-16.0); LYMPHOCYTES # 1.6 10^3/ul (0.8-2.9); LYMPHOCYTES % 22.1 % (15.0-51.0); MEAN CORPUSCULAR HEMOGLOBIN 27.2 pg (29.0-33.0); MEAN CORPUSCULAR HGB CONC 32.4 g/dl (32.0-37.0); MEAN CORPUSCULAR VOLUME 84.1 fl (82.0-101.0); MEAN PLATELET VOLUME 8.1 fl (7.4-10.4); MONOCYTE # 0.4 10^3/ul (0.3-0.9); MONOCYTES % 5.3 % (0.0-11.0); NEUTROPHIL # 5.3 10^3/ul (1.6-7.5); NEUTROPHILS % 71.8 % (39.0-77.0); PLATELET COUNT 475 10^3/UL (140-415); RED BLOOD COUNT 3.01 10^6/ul (4.20-5.40); RED CELL DISTRIBUTION WIDTH 16.3 % (11.5-14.5)
[2017-05-21 05:24] LABS: WHITE BLOOD COUNT 7.3 10^3/ul (4.8-10.8)
[2017-05-21] MEDS: PANTOPRAZOLE 40 MG INJ IV (05:25)
[2017-05-21] MEDS: PIPER-TAZO 3.375 GM IV (PMX) 100 ML IVPB ×2 (05:25→12:34)
[2017-05-21 06:21] LABS: VANCOMYCIN,TROUGH 17.4 ug/ml (10.0-20.0)
[2017-05-21] MEDS: VANCOMYCIN 750 MG in DEXTROSE 5% 150 ML IVPB (06:47)
[2017-05-21] MEDS: INSULIN ASPART [NOVOLOG] 3 ML PEN SC ×4 (07:30→21:00)
[2017-05-21] MEDS: MAGNESIUM HYDROXIDE 30ML CUP PO (08:47)
[2017-05-21] MEDS: BISACODYL 10 MG SUPP PR (08:47)
[2017-05-21] MEDS: LINAGLIPTIN 5 MG TABLET PO (08:47)
[2017-05-21] MEDS: ZINC SULFATE 220 MG CAP PO (08:47)
[2017-05-21] MEDS: ASCORBIC ACID 500 MG TAB PO (08:47)
[2017-05-21] MEDS: ASPIRIN 81 MG TAB PO (08:47)
[2017-05-21] MEDS: AMLODIPINE 10 MG TAB PO (08:48)
[2017-05-21] MEDS: LOSARTAN 50 MG TAB PO ×2 (08:48→21:06)
[2017-05-21] MEDS: ENOXAPARIN 40 MG/0.4 ML SYG SC (08:49)
[2017-05-21] MEDS: HYDROmorphONE 0.5 MG/0.5 ML SYG IV (12:35)
[2017-05-21] MEDS: SOD FERRIC GLUC COMPLX 125 MG in SOD CHLORIDE 0.9% 100 ML IVPB (15:13)
[2017-05-21] MEDS: CEFTRIAXONE 1 GM/50 ML (PMX) 50 ML IVPB (17:29)
[2017-05-21] MEDS: VANCOMYCIN 500MG/NS (PMX) 100 ML IVPB (18:22)
[2017-05-21] MEDS: INSULIN DETEMIR [LEVEMIR] 3ML CART SC (21:02)
[2017-05-21] MEDS: DOCUSATE SODIUM 10 MG/ML (10ML CUP) PO (21:03)
[2017-05-21] MEDS: ATORVASTATIN 20 MG TAB PO (21:03)
[2017-05-21] MEDS: ACCU-CHEK XX (23:38)
[2017-05-22] MEDS: HYDROCODONE/APAP (5/325) TAB PO ×4 (03:50→21:50)
[2017-05-22] MEDS: VANCOMYCIN 500MG/NS (PMX) 100 ML IVPB ×2 (05:30→18:25)
[2017-05-22] MEDS: PANTOPRAZOLE 40 MG INJ IV (05:30)
[2017-05-22 07:16] LABS: CHOLESTEROL 73 mg/dl (100-200)
[2017-05-22 07:16] LABS: CHOL/HDL RATIO 2.6 RATIO; HDL CHOLESTEROL 28 mg/dl (33-92); LDL CHOLESTEROL,CALCULATED 24 mg/dl; TRIGLYCERIDES 105 mg/dl (0-149)
[2017-05-22 07:18] LABS: ANION GAP 13 (8-16); BLOOD UREA NITROGEN 8 mg/dl (7-20); CALCIUM 8.1 mg/dl (8.4-10.2); CARBON DIOXIDE 32 mmol/L (21-31); CHLORIDE 95 mmol/L (97-110); CREATININE 0.55 mg/dl (0.44-1.00); SODIUM 138 mmol/L (135-144)
[2017-05-22 07:22] LABS: GLUCOSE 36 mg/dl (70-220); POTASSIUM 2.4 mmol/L (3.5-5.1)
[2017-05-22] MEDS: DEXTROSE 50% 50 ML SYRINGE IV (07:42)
[2017-05-22] MEDS: GLUCOSE GEL 15 GRAM TUBE BUCCAL (07:53)
[2017-05-22] MEDS: INSULIN ASPART [NOVOLOG] 3 ML PEN SC ×4 (08:52→21:00)
[2017-05-22] MEDS: ZINC SULFATE 220 MG CAP PO (08:55)
[2017-05-22] MEDS: POTASSIUM CHLORIDE (SR) 20 MEQ TAB PO ×2 (08:55→12:48)
[2017-05-22] MEDS: ASPIRIN 81 MG TAB PO (08:56)
[2017-05-22] MEDS: ASCORBIC ACID 500 MG TAB PO (08:56)
[2017-05-22] MEDS: LINAGLIPTIN 5 MG TABLET PO (08:56)
[2017-05-22] MEDS: LOSARTAN 50 MG TAB PO ×2 (08:57→21:51)
[2017-05-22] MEDS: AMLODIPINE 10 MG TAB PO (08:58)
[2017-05-22] MEDS: ENOXAPARIN 40 MG/0.4 ML SYG SC (08:58)
[2017-05-22] MEDS: MAGNESIUM HYDROXIDE 30ML CUP PO (08:58)
[2017-05-22] MEDS: BISACODYL 10 MG SUPP PR (08:58)
[2017-05-22] MEDS: LIDOCAINE 1% (MPF) 5 ML VIAL SC (10:45)
[2017-05-22] MEDS: SOD FERRIC GLUC COMPLX 125 MG in SOD CHLORIDE 0.9% 100 ML IVPB (13:20)
[2017-05-22] MEDS ORDERED: HYDROmorphONE 2 MG TAB PO (15:00)
[2017-05-22] MEDS: CEFTRIAXONE 1 GM/50 ML (PMX) 50 ML IVPB (17:32)
[2017-05-22] MEDS: DOCUSATE SODIUM 10 MG/ML (10ML CUP) PO (21:49)
[2017-05-22] MEDS: GUAIFENESIN/DM 5ML CUP PO (21:49)
[2017-05-22] MEDS: ATORVASTATIN 20 MG TAB PO (21:50)
[2017-05-22] MEDS: INSULIN DETEMIR [LEVEMIR] 3ML CART SC (21:54)
[2017-05-22] MEDS: POTASSIUM CHLORIDE (SR) 10 MEQ TAB PO (22:13)
[2017-05-23] MEDS: ACCU-CHEK XX (01:36)
[2017-05-23] MEDS: PANTOPRAZOLE 40 MG INJ IV (05:16)
[2017-05-23] MEDS: HYDROCODONE/APAP (5/325) TAB PO ×4 (05:17→22:48)
[2017-05-23 09:03] LABS: ALANINE AMINOTRANSFERASE 21 IU/L (13-69); ALBUMIN 2.6 g/dl (3.3-4.9); ALBUMIN/GLOBULIN RATIO 0.76; ALKALINE PHOSPHATASE 84 IU/L (42-121); ANION GAP 10 (8-16); ASPARTATE AMINO TRANSFERASE 12 IU/L (15-46); BLOOD UREA NITROGEN 20 mg/dl (7-20); CALCIUM 8.3 mg/dl (8.4-10.2); CARBON DIOXIDE 31 mmol/L (21-31); CHLORIDE 95 mmol/L (97-110); GLUCOSE 192 mg/dl (70-220); POTASSIUM 3.3 mmol/L (3.5-5.1); SODIUM 133 mmol/L (135-144)
[2017-05-23 09:06] LABS: VANCOMYCIN,TROUGH 13.1 ug/ml (10.0-20.0)
[2017-05-23] MEDS: INSULIN ASPART [NOVOLOG] 3 ML PEN SC ×4 (09:08→21:00)
[2017-05-23] MEDS: AMLODIPINE 10 MG TAB PO (09:10)
[2017-05-23] MEDS: ASPIRIN 81 MG TAB PO (09:10)
[2017-05-23] MEDS: LOSARTAN 50 MG TAB PO ×2 (09:11→22:49)
[2017-05-23] MEDS: BISACODYL 10 MG SUPP PR (09:12)
[2017-05-23] MEDS: LINAGLIPTIN 5 MG TABLET PO (09:12)
[2017-05-23] MEDS: ASCORBIC ACID 500 MG TAB PO (09:12)
[2017-05-23] MEDS: MAGNESIUM HYDROXIDE 30ML CUP PO (09:12)
[2017-05-23] MEDS: ZINC SULFATE 220 MG CAP PO (09:12)
[2017-05-23] MEDS: POTASSIUM CHLORIDE (SR) 10 MEQ TAB PO (09:12)
[2017-05-23] MEDS: ENOXAPARIN 40 MG/0.4 ML SYG SC (09:14)
[2017-05-23] MEDS: VANCOMYCIN 500MG/NS (PMX) 100 ML IVPB ×2 (09:28→19:31)
[2017-05-23 10:13] LABS: OCCULT BLOOD STOOL NEGATIVE (NEGATIVE)
[2017-05-23] MEDS: SOD FERRIC GLUC COMPLX 125 MG in SOD CHLORIDE 0.9% 100 ML IVPB (15:27)
[2017-05-23] MEDS: POTASSIUM CHLORIDE (SR) 20 MEQ TAB PO ×2 (17:53→22:48)
[2017-05-23] MEDS: CEFTRIAXONE 1 GM/50 ML (PMX) 50 ML IVPB (17:53)
[2017-05-23] MEDS: DOCUSATE SODIUM 10 MG/ML (10ML CUP) PO (22:47)
[2017-05-23] MEDS: ATORVASTATIN 20 MG TAB PO (22:48)
[2017-05-23] MEDS: INSULIN DETEMIR [LEVEMIR] 3ML CART SC (22:54)
[2017-05-24] MEDS: ACCU-CHEK XX (02:00)
[2017-05-24] MEDS: PANTOPRAZOLE 40 MG INJ IV (05:06)
[2017-05-24] MEDS: HYDROCODONE/APAP (5/325) TAB PO ×4 (05:06→21:30)
[2017-05-24] MEDS: VANCOMYCIN 500MG/NS (PMX) 100 ML IVPB (05:45)
[2017-05-24 06:34] LABS: ADD MAN DIFF? NO
[2017-05-24 06:39] LABS: WHITE BLOOD COUNT 8.1 10^3/ul (4.8-10.8)
[2017-05-24 06:39] LABS: BASOPHILS % 0.2 % (0.0-2.0); EOSINOPHILS # 0.1 10^3/ul (0.0-0.5); EOSINOPHILS % 0.9 % (0.0-7.0); HEMATOCRIT 27.4 % (37.0-47.0); HEMOGLOBIN 8.7 g/dl (12.0-16.0); LYMPHOCYTES # 1.8 10^3/ul (0.8-2.9); MEAN CORPUSCULAR HEMOGLOBIN 26.7 pg (29.0-33.0); MEAN CORPUSCULAR HGB CONC 31.8 g/dl (32.0-37.0); MEAN PLATELET VOLUME 8.3 fl (7.4-10.4); MONOCYTE # 0.4 10^3/ul (0.3-0.9); MONOCYTES % 4.6 % (0.0-11.0); NEUTROPHIL # 5.8 10^3/ul (1.6-7.5); NEUTROPHILS % 71.8 % (39.0-77.0); PLATELET COUNT 452 10^3/UL (140-415); RED BLOOD COUNT 3.26 10^6/ul (4.20-5.40); RED CELL DISTRIBUTION WIDTH 16.5 % (11.5-14.5)
[2017-05-24 07:18] LABS: ANION GAP 11 (8-16); BLOOD UREA NITROGEN 14 mg/dl (7-20); CALCIUM 8.3 mg/dl (8.4-10.2); CARBON DIOXIDE 29 mmol/L (21-31); CHLORIDE 98 mmol/L (97-110); CREATININE 0.55 mg/dl (0.44-1.00); GLUCOSE 140 mg/dl (70-220); POTASSIUM 3.8 mmol/L (3.5-5.1); SODIUM 134 mmol/L (135-144)
[2017-05-24] MEDS: INSULIN ASPART [NOVOLOG] 3 ML PEN SC ×4 (07:30→20:14)
[2017-05-24] MEDS: MAGNESIUM HYDROXIDE 30ML CUP PO (10:30)
[2017-05-24] MEDS: ASCORBIC ACID 500 MG TAB PO (10:31)
[2017-05-24] MEDS: LOSARTAN 50 MG TAB PO ×4 (10:32→21:39)
[2017-05-24] MEDS: ZINC SULFATE 220 MG CAP PO (10:32)
[2017-05-24] MEDS: LINAGLIPTIN 5 MG TABLET PO (10:34)
[2017-05-24] MEDS: POTASSIUM CHLORIDE (SR) 20 MEQ TAB PO ×3 (10:34→20:58)
[2017-05-24] MEDS: ASPIRIN 81 MG TAB PO (10:34)
[2017-05-24] MEDS: AMLODIPINE 10 MG TAB PO (10:35)
[2017-05-24] MEDS: BISACODYL 10 MG SUPP PR (10:37)
[2017-05-24] MEDS: ENOXAPARIN 40 MG/0.4 ML SYG SC (10:38)
[2017-05-24] MEDS: SOD FERRIC GLUC COMPLX 125 MG in SOD CHLORIDE 0.9% 100 ML IVPB (14:12)
[2017-05-24] MEDS: INSULIN DETEMIR [LEVEMIR] 3ML CART SC (20:10)
[2017-05-24] MEDS: DOCUSATE SODIUM 10 MG/ML (10ML CUP) PO ×2 (20:11→20:59)
[2017-05-24] MEDS: ATORVASTATIN 20 MG TAB PO ×3 (20:12→21:40)
[2017-05-25] MEDS: ACCU-CHEK XX (02:00)
[2017-05-25] MEDS: HYDROCODONE/APAP (5/325) TAB PO ×4 (03:30→21:55)
[2017-05-25] MEDS: PANTOPRAZOLE 40 MG INJ IV (05:28)
[2017-05-25] MEDS: hydrALAzine 20 MG INJ IV (06:34)
[2017-05-25] MEDS: INSULIN ASPART [NOVOLOG] 3 ML PEN SC ×4 (07:30→21:00)
[2017-05-25] MEDS: BISACODYL 10 MG SUPP PR (09:00)
[2017-05-25] MEDS: MAGNESIUM HYDROXIDE 30ML CUP PO ×2 (09:00→10:08)
[2017-05-25] MEDS: POTASSIUM CHLORIDE (SR) 20 MEQ TAB PO ×2 (10:08→21:56)
[2017-05-25] MEDS: ENOXAPARIN 40 MG/0.4 ML SYG SC (10:08)
[2017-05-25] MEDS: AMLODIPINE 10 MG TAB PO (10:09)
[2017-05-25] MEDS: ASPIRIN 81 MG TAB PO (10:09)
[2017-05-25] MEDS: ASCORBIC ACID 500 MG TAB PO (10:09)
[2017-05-25] MEDS: LINAGLIPTIN 5 MG TABLET PO (10:09)
[2017-05-25] MEDS: ZINC SULFATE 220 MG CAP PO (10:09)
[2017-05-25] MEDS: LOSARTAN 50 MG TAB PO ×2 (10:10→21:57)
[2017-05-25] MEDS: DOCUSATE SODIUM 10 MG/ML (10ML CUP) PO (21:54)
[2017-05-25] MEDS: ATORVASTATIN 20 MG TAB PO (21:54)
[2017-05-25] MEDS: INSULIN DETEMIR [LEVEMIR] 3ML CART SC (21:55)
[2017-05-26] MEDS: ACCU-CHEK XX (02:00)
[2017-05-26] MEDS: HYDROCODONE/APAP (5/325) TAB PO ×4 (03:43→15:53)
[2017-05-26] MEDS: PANTOPRAZOLE 40 MG INJ IV (05:34)
[2017-05-26] MEDS: INSULIN ASPART [NOVOLOG] 3 ML PEN SC ×3 (07:30→17:16)
[2017-05-26] MEDS: ZINC SULFATE 220 MG CAP PO ×2 (09:00→09:37)
[2017-05-26] MEDS: POTASSIUM CHLORIDE (SR) 20 MEQ TAB PO ×2 (09:00→09:37)
[2017-05-26] MEDS: ASCORBIC ACID 500 MG TAB PO ×2 (09:00→09:37)
[2017-05-26] MEDS: AMLODIPINE 10 MG TAB PO ×2 (09:00→09:38)
[2017-05-26] MEDS: BISACODYL 10 MG SUPP PR (09:00)
[2017-05-26] MEDS: ASPIRIN 81 MG TAB PO ×2 (09:00→09:37)
[2017-05-26] MEDS: LINAGLIPTIN 5 MG TABLET PO ×2 (09:00→09:38)
[2017-05-26] MEDS: MAGNESIUM HYDROXIDE 30ML CUP PO ×2 (09:00→09:38)
[2017-05-26] MEDS: ENOXAPARIN 40 MG/0.4 ML SYG SC ×2 (09:00→09:39)
[2017-05-26] MEDS: LOSARTAN 50 MG TAB PO ×2 (09:00→09:37)
== END 2017-05-26 22:33 | DRG 853 ==
LOC: E/R 13:57 → PP2 20:07
PROVIDERS: Internal Medicine Nephrology
PROC: 0Y6H0Z2 Detachment at Right Lower Leg, Mid, Open Approach (ICD-10-PCS; principal; 2017-05-18 13:19)
PROC: 30233N1 Transfusion of Nonautologous Red Blood Cells into Peripheral Vein, Percutaneous Approach (ICD-10-PCS; 2017-05-18 13:19)
DX: A41.51 Sepsis due to Escherichia coli [E. coli] (principal); G93.40 Encephalopathy, unspecified; E11.52 Type 2 diabetes mellitus with diabetic peripheral angiopathy with gangrene; I42.9 Cardiomyopathy, unspecified; N39.0 Urinary tract infection, site not specified; I70.76 Atherosclerosis of other type of bypass graft(s) of the extremities with gangrene; N18.3 Chronic kidney disease, stage 3 (moderate); A41.81 Sepsis due to Enterococcus; I12.9 Hypertensive chronic kidney disease with stage 1 through stage 4 chronic kidney disease, or unspecified chronic kidney disease; D64.9 Anemia, unspecified; Z16.21 Resistance to vancomycin; R50.82 Postprocedural fever
CPT/HCPCS: 36430; 36569; 71045; 73630; 76937; 80048; 80053; 80061; 80202; 81001; 81003; 82270; 82565; 82962; 83036; 83605; 83735; 84100; 84484; 84520; 85025; 85610; 85730; 86850; 86900; 86901; 86920; 87040; 87081; 87086; 88304; 88311; 93005; 93306; 96365; 96366; 96372; 96375; 96376; 99285-25